=== PATIENT | male | born 2005 | race Caucasian/White ===

== ENCOUNTER 2024-02-20 04:17 | Emergency (ER) | payer OTHER ==
[~2024-02-20] VITALS: Ht 188 cm; Wt 90.7 kg
[2024-02-20] MEDS: NEOMY SULF/BACITRA/POLYMYXIN B 1 EACH PACKET TP ONE (05:31)
[2024-02-20] MEDS: TETANUS/DIPHTHERIA TOXOID [ADULT] 0.5 ML VIAL IM ONE (05:31)
[2024-02-20] MEDS: LIDOCAINE HCL 1% 20 ML VIAL INJ SCH (05:32)
[2024-02-20] MEDS: DIPH,PERTUSS(ACELL),TET VAC/PF 0.5 ML VIAL IM ONE (05:32)
[2024-02-20 05:43] VITALS: BP 127/72; PULSE 74; RESP 18; O2SAT 100
== END 2024-02-20 05:43 | disposition home or self-care (01) ==
LOC: EDH 04:17
DX: S61.214A Laceration without foreign body of right ring finger without damage to nail, initial encounter (principal); W25.XXXA Contact with sharp glass, initial encounter; Y93.89 Activity, other specified; Y92.89 Other specified places as the place of occurrence of the external cause; Y99.8 Other external cause status
CPT/HCPCS: 12002; 73120; 90471; 90715